=== PATIENT | female | born 1960 | race Caucasian/White ===

== ENCOUNTER 2018-02-22 17:49 | Inpatient (IN) | payer OTHER ==
[~2018-02-22] VITALS: Ht 162.6 cm; Wt 60.4 kg
--- OUTSIDE RECORDS SUMMARY | 2018-02-22 17:50 | XMS REPORT | Clinical Summary ---
Author Author [facility] [place] [facility] Organization [facility] Address Unknown Phone Unavailable Care Team Providers Care Deicer Element Winder Machine Name Role Phone Jake Alves PCP Allergies No Known Allergies Medications End Date Status Medication Sig Dispensed Refills Start Date Active traMADol (ULTRAM) 50 mg TK 1 T PO QD 0 tablet PRN 8 Active levothyroxine (SYNTHROID, TK 1 T PO QD 1 LEVOXYL) 112 mcg tablet 8 Active dextroamphetamine-ampheta TK 1 T PO QD 0 mine (ADDERALL) 20 mg UTD 8 tablet Active Problems Not on file Encounters Care Team Description Date Type Specialty Noel Ochoa MA Screening for osteoporosis (Primary Dx) 05/02/2017 Orders Only Obstetrics and Gynecology Kristyn Rogers MA 04/24/2017 Telephone Obstetrics and Gynecology Olivia Giron MD Pap smear, low-risk (Primary Dx); Screening mammogram, encounter for 04/04/2017 Office Visit Obstetrics and Gynecology after 02/21/2017 Family History Medical History Relation Name Comments Heart disease Father Hypertension Father Lung cancer Father Relation Name Status Comments Father Social History Date Tobacco Use Types Packs/Day Years Used Current Every Day Smoker Cigarettes 4 Smokeless Tobacco: Never Used Alcohol Use Drinks/Week oz/Week Comments Yes social Sex Assigned at Date Recorded Not on file Industry Job Start Date Occupation Not on file Not on file Not on file Travel End Travel History Travel Start No recent travel history available. Last Filed Vital Signs Time Taken Vital Sign Reading 04/04/2017 3:12 PM CHANGE MANAGEMENT ADMINISTRATOR Blood Pressure 125/86 04/04/2017 3:12 PM CHANGE MANAGEMENT ADMINISTRATOR Pulse 99 04/04/2017 2:40 PM CHANGE MANAGEMENT ADMINISTRATOR Temperature 36.7 C (98.1 F) - Respiratory Rate - - Oxygen Saturation - - Inhaled Oxygen - Concentration 04/04/2017 2:40 PM CHANGE MANAGEMENT ADMINISTRATOR Weight 62.1 kg (136 lb 12.8 oz) - Height - - Body Mass Index - Plan of Treatment Health Maintenance Due Date Last Done Comments CERVICAL CANCER SCREENING 06/16/1983 BREAST CANCER SCREENING 2012 COLON CANCER SCREENING 2012 SHINGLES VACCINES (1 of 2012 2) INFLUENZA VACCINE 09/13/2017 Procedures Comments Procedure Name Priority Date/Time Associated Diagnosis PAP IG, RFX HPV ASCU Routine 04/04/2017 Pap smear, low-risk 2:43 PM CHANGE MANAGEMENT ADMINISTRATOR after 02/21/2017 Results * Pap IG, rfx HPV ASCU (04/04/2017 2:43 PM CHANGE MANAGEMENT ADMINISTRATOR) Diagnosis CommentComment: NEGATIVE FOR [facility] INTRAEPITHELIAL LESION AND MALIGNANCY. Specimen adequacy Comment [facility] Comment: Satisfactory for evaluation.Endocervical and/or squamous metaplastic cells (endocervical component) are present. Clinician provided ICD10 CommentComment: Z01.419 [facility] Performed by: Comment [facility] Comment: Willem Lobato, Golf Ball Molder (ASCP) Reviewed at: [facility] [address] [facility] [id number] Comment . [facility] Note: Comment [facility] Comment: The Pap smear is a screening test designed to aid in the detection of premalignant and malignant conditions of the uterine cervix.It is not a diagnostic procedure and should not be used as the sole means of detecting cervical cancer.Both false-positive and false-negative reports do occur. Test methodology Comment [facility] Comment: This liquid based ThinPrep(R) pap test was screened with the use of an image guided system. Reflex Comment [facility] Comment: The HPV DNA reflex criteria were not met with this specimen result therefore, no HPV testing was performed. Specimen Cervical Narrative Performed At Performed at: - [facility] [address] [facility], [place], [id number] E D Tech: Elizabeth Couch MD, Phone:[phone] Specimen Comment: No. of containers..01 ThinPrep Vial Performing Organization Address City/State/Zipcode Phone Number [facility] after 02/21/2017 Insurance Payer Benefit Subscriber ID Type Phone Address Plan / Group [facility] xxxxxxxxx HMO/PPO THCARE CHOICE/CHO ICE + Advance Directives Patient has advance care planning documents on file. For more information, rolando lin contact: Noble Fisher [address] [place] [address]
[2018-02-22] MEDS ORDERED: ASPIRIN 81 MG CHEW TAB ONE (18:09)
[2018-02-22 18:14] LABS: BASOPHILS % 0.5 % (0.0-1.0); EOSINOPHILS # (AUTO) 0.3 (0.0-0.4); HEMATOCRIT 43.6 % (34.2-44.1); HEMOGLOBIN 15.1 g/dL (12.0-16.0); LYMPHOCYTES # (AUTO) 3.4 (1.0-3.2); LYMPHOCYTES % 38.1 % (18.0-39.1); MEAN CORPUSCULAR HEMOGLOBIN 32.4 pg (28-32); MEAN CORPUSCULAR HGB CONC 34.6 g/dL (31-35); MEAN CORPUSCULAR VOLUME 93.6 fL (81-99); MONOCYTES # (AUTO) 0.7 (0.2-0.8); MONOCYTES % 7.5 % (4.4-11.3); NEUTROPHILS # (AUTO) 4.5 (2.1-6.9); NEUTROPHILS % 50.7 % (38.7-80.0); PLATELET COUNT 323 x10e3/uL (140-360); RED BLOOD COUNT 4.66 x10e6/uL (3.6-5.1); RED CELL DISTRIBUTION WIDTH 11.4 % (11.7-14.4)
[2018-02-22] MEDS ORDERED: MORPHINE SULFATE INJ 4 MG/ML INJ IV STA (18:21)
[2018-02-22] MEDS ORDERED: TICAGRELOR 90 MG TABLET PO STA (18:23)
[2018-02-22 18:24] LABS: INR 0.77; PROTHROMBIN TIME 11.5 seconds (11.9-14.5)
[2018-02-22] MEDS ORDERED: MORPHINE SULFATE INJ 4 MG/ML INJ ONE (18:24)
[2018-02-22] MEDS ORDERED: ONDANSETRON HCL INJ 2 MG/ML VIAL ONE (18:25)
[2018-02-22] MEDS ORDERED: ONDANSETRON HCL INJ 2 MG/ML VIAL IV STA (18:26)
[2018-02-22] MEDS ORDERED: HEPARIN SOD (PORCINE) 5,000 UNIT/ML VIAL IV ONE (18:30)
[2018-02-22] MEDS ORDERED: METOPROLOL TARTRATE INJ 1 MG/ML VIAL IV ONE (18:30)
[2018-02-22] MEDS ORDERED: VERAPAMIL HCL 2.5 MG/ML 2 ML VIAL ONE (18:30)
[2018-02-22] MEDS ORDERED: FENTANYL CITRATE/PF 100MCG/2 ML INJ ONE (18:30)
[2018-02-22] MEDS ORDERED: HEPARIN SOD (PORCINE) 1000 UNIT/ML 30ML ONE (18:30)
[2018-02-22] MEDS ORDERED: MIDAZOLAM HCL 2 MG/2 ML VIAL ONE ×2 (18:30→19:05)
[2018-02-22 18:31] LABS: ALANINE AMINOTRANSFERASE 111 IU/L (0-55); ALBUMIN 4.1 g/dL (3.5-5.0); ALBUMIN/GLOBULIN RATIO 1.5 (0.8-2.0); ALKALINE PHOSPHATASE 90 IU/L (40-150); ANION GAP 14.4 mmol/L (8-16); BLOOD UREA NITROGEN 14 mg/dL (7-26); BUN/CREATININE RATIO 15 (6-25); CALCIUM 9.8 mg/dL (8.4-10.2); CARBON DIOXIDE 26 mmol/L (22-29); CHLORIDE 101 mmol/L (98-107); CREATINE KINASE 66 IU/L (29-168); CREATININE, SERUM 0.96 mg/dL (0.57-1.11); EST GLOMERULAR FILTRATION RATE 60 ML/MIN (60-); GLUCOSE 90 mg/dL (74-118); POTASSIUM 3.4 mmol/L (3.5-5.1); SODIUM 138 mmol/L (136-145)
[2018-02-22] MEDS ORDERED: IOPAMIDOL 370 MG/ML 200 ML INFUS..BTL INJ ONE (18:31)
[2018-02-22] MEDS ORDERED: SODIUM CHLORIDE 0.9% 1000ML 1,000 ML ONE (18:31)
[2018-02-22] MEDS ORDERED: LIDOCAINE HCL 1% LOCAL INJ 20 ML VIAL ONE (18:31)
[2018-02-22] MEDS ORDERED: HEPARIN SOD/SOD CHLORIDE 2,000 ML ONE (18:31)
[2018-02-22] MEDS ORDERED: NITROGLYCERIN/D5W 200 MCG/ML 250 ML ONE (18:31)
[2018-02-22] MEDS ORDERED: TICAGRELOR 90 MG TABLET ONE (18:35)
[2018-02-22] MEDS ORDERED: HEPARIN SOD (PORCINE) 1000 UNIT/ML SDV ONE (18:36)
[2018-02-22] MEDS ORDERED: MORPHINE SULFATE 2 MG/ML SYR IV PRN (20:00)
[2018-02-22] MEDS: MORPHINE SULFATE INJ 4 MG/ML INJ IV PRN ×2 (20:15→22:15)
--- OUTSIDE RECORDS SUMMARY | 2018-02-22 20:44 | XMS REPORT | Clinical Summary ---
Author Author [employer] Organization [employer] Address Unknown Phone Unavailable Care Team Providers Care Ad Setter Name Role Phone Jake Alves PCP Allergies [...] Taken Vital Sign Reading 04/04/2017 3:12 PM COLORS CUSTODIAN Blood Pressure 125/86 04/04/2017 3:12 PM COLORS CUSTODIAN Pulse 99 04/04/2017 2:40 PM COLORS CUSTODIAN Temperature 36.7 C (98.1 F) - Respiratory Rate - - Oxygen Saturation - - Inhaled Oxygen - Concentration 04/04/2017 2:40 PM COLORS CUSTODIAN Weight 62.1 kg (136 lb 12.8 oz) [...] Routine 04/04/2017 Pap smear, low-risk 2:43 PM COLORS CUSTODIAN after 02/21/2017 Results * Pap IG, rfx HPV ASCU (04/04/2017 2:43 PM COLORS CUSTODIAN) Diagnosis CommentComment: NEGATIVE FOR [facility] INTRAEPITHELIAL LESION AND MALIGNANCY. Specimen adequacy Comment [facility] Comment: Satisfactory for evaluation.Endocervical and/or squamous metaplastic cells (endocervical component) are present. Clinician provided ICD10 CommentComment: Z01.419 [facility] Performed by: Comment [facility] Comment: Willem Lobato, Computer Tech (ASCP) Reviewed at: [facility] [address] [facility] [id number] Comment . [facility] Note: Comment [facility] Comment: [...] Narrative Performed At Performed at: - [facility] [address] [facility], [place], [id number] Manager User Experience: Elizabeth Couch MD, Phone:[phone] Specimen Comment: No. of containers..01 ThinPrep Vial Performing Organization Address City/State/Zipcode Phone Number [facility] after 02/21/2017 Insurance Payer Benefit Subscriber ID Type Phone Address Plan / Group [facility] xxxxxxxxx HMO/PPO THCARE CHOICE/CHO ICE + Advance Directives Patient has advance care planning documents on file. For more information, rolando lin contact: Noble Fisher [address] [place] [address]
[2018-02-22] MEDS ORDERED: ACETAMINOPHEN 325 MG TAB PO PRN (21:00)
[2018-02-22] MEDS ORDERED: ONDANSETRON HCL INJ 2 MG/ML VIAL IV PRN (21:00)
[2018-02-22] MEDS ORDERED: HYDRALAZINE HCL 20 MG/ML VIAL IV PRN (21:00)
[2018-02-22] MEDS ORDERED: ATORVASTATIN 20 MG TAB PO SCH (21:00)
[2018-02-22 21:05] VITALS: BP 144/101
--- NOTE | 2018-02-22 21:05 | Operative Report ---
DATE OF PROCEDURE: February 22, 2018 INDICATIONS FOR PROCEDURE: ST elevation OK. PREPROCEDURE ASSESSMENT: Patient's medical history, social history, prior experience with anesthesia were reviewed prior to the procedure. All the risks, benefits, alternatives of the procedure as well as moderate sedation were explained to the patient and informed consent was obtained as documented in the medical record. MEDICATIONS ADMINISTERED: Please see nursing notes for medications administered during the procedure. PROCEDURES PERFORMED 1. Coronary angiography. 2. Left heart catheterization. PROCEDURE DETAIL: Patient was brought to the cardiac catheterization laboratory in an emergent fashion. The right wrist was prepped and draped in a sterile manner. A 6-Scottish slender sheath was inserted into the right radial artery using modified Seldinger technique. Coronary angiography was performed using a 6-Scottish Folloyu left 3.5 guiding catheter to engage both the left and the right coronary arteries. Left heart catheterization was performed using an angled pigtail catheter. LV-gram was performed using the same angled pigtail catheter. All catheters were removed over a wire. Arteriotomy was closed using a TR band. Case ended without any complications. FINDINGS: Tortuous vessels, however, no obstructive coronary artery disease. LV-gram showed apical hypokinesis consistent with diagnosis of stress induced cardiomyopathy or takotsubo cardiomyopathy. COMPLICATIONS: None. ESTIMATED BLOOD LOSS: 20. GRAFTS AND IMPLANTS: None. FINAL RECOMMENDATIONS 1. Admitted to ICU for overnight observation. 2. TR band protocol. 3. Patient has takotsubo cardiomyopathy. Will place her on heart failure medications and patient will need to follow up in clinic to documented recovery. Thank you for this consult. Will continue to follow. Job#: [id number]
[2018-02-22 21:10] VITALS: BP 146/52
[2018-02-22 22:00] VITALS: BP 113/83
[2018-02-22] MEDS: METOPROLOL TARTRATE 50 MG TAB PO SCH (22:03)
[2018-02-23] VITALS (17 sets, daily range): BP systolic 108–132; BP diastolic 71–95
[2018-02-23] MEDS: MORPHINE SULFATE INJ 4 MG/ML INJ IV PRN (04:21)
[2018-02-23 04:49] LABS: BASOPHILS % 0.4 % (0.0-1.0); EOSINOPHILS # (AUTO) 0.3 (0.0-0.4); EOSINOPHILS % 2.8 % (0.0-6.0); HEMATOCRIT 38.1 % (34.2-44.1); HEMOGLOBIN 13.2 g/dL (12.0-16.0); LYMPHOCYTES % 30.2 % (18.0-39.1); MEAN CORPUSCULAR HEMOGLOBIN 32.8 pg (28-32); MEAN CORPUSCULAR HGB CONC 34.6 g/dL (31-35); MEAN CORPUSCULAR VOLUME 94.8 fL (81-99); MONOCYTES # (AUTO) 0.6 (0.2-0.8); MONOCYTES % 6.3 % (4.4-11.3); NEUTROPHILS # (AUTO) 5.9 (2.1-6.9); NEUTROPHILS % 59.9 % (38.7-80.0); PLATELET COUNT 261 x10e3/uL (140-360); RED BLOOD COUNT 4.02 x10e6/uL (3.6-5.1); RED CELL DISTRIBUTION WIDTH 11.4 % (11.7-14.4)
[2018-02-23 05:07] LABS: ANION GAP 10.9 mmol/L (8-16); BLOOD UREA NITROGEN 13 mg/dL (7-26); BUN/CREATININE RATIO 15 (6-25); CALCIUM 8.8 mg/dL (8.4-10.2); CARBON DIOXIDE 27 mmol/L (22-29); CHLORIDE 107 mmol/L (98-107); CHOL/HDL RATIO 3.6 (3.0-3.6); CHOLESTEROL 180 MD/DL (0-199); CREATININE, SERUM 0.84 mg/dL (0.57-1.11); EST GLOMERULAR FILTRATION RATE > 60 ML/MIN (60-); GLUCOSE 92 mg/dL (74-118); HDL CHOLESTEROL 50 MG/DL (40-60); LDL CHOLESTEROL 99 MG/DL (60-130); POTASSIUM 3.9 mmol/L (3.5-5.1); SODIUM 141 mmol/L (136-145); TRIGLYCERIDES 153 MG/DL (0-149)
[2018-02-23] MEDS ORDERED: LISINOPRIL 10 MG TAB PO SCH (09:00)
[2018-02-23] MEDS: METOPROLOL TARTRATE 50 MG TAB PO SCH ×2 (10:07→18:30)
--- NOTE | 2018-02-23 10:39 | History and Physical ---
REASON FOR ADMISSION: Chest pain. HISTORY OF PRESENT ILLNESS: This is a 57-year-old woman with a history of hypothyroidism and ADD, who presents with complaints of chest pain. The patient reports she began having chest pain yesterday radiating down both arms, left greater than right. She described the sensation as heaviness that was 10/10 in severity, which lasted several hours until she presented to the ER. This pain was associated with diaphoresis, but not shortness of breath or nausea. She denied any edema, orthopnea or PND. On arrival to the ER, she was found to have a sinus tachycardia with inferior ST-elevation. The cardiac catheterization laboratory was activated. She was emergently taken to the cardiac catheterization lab for coronary angiography. She was found to have tortuous vessels. However, without obstructive coronary artery disease. LV-gram demonstrated apical hypokinesis consistent with stress-induced cardiomyopathy or Takotsubo cardiomyopathy. She was admitted to the ICU for further evaluation. She currently reports her chest pain has resolved. REVIEW OF SYSTEMS: Negative except as per HPI. PAST MEDICAL HISTORY: Hypothyroidism, ADD. PAST SURGICAL HISTORY: Tubal ligation. ALLERGIES: NO KNOWN DRUG ALLERGIES. MEDICATIONS: Please see EMR. SOCIAL HISTORY: She smokes 2 cigarettes a day for 25 years, except for the last 25 years. No alcohol or drugs. FAMILY HISTORY: Pertinent for father with myocardial infarction at the age of 60. PHYSICAL EXAMINATION VITALS: Temperature 97.4 degrees, pulse 62, respiratory rate 16, blood pressure 119/90, oxygen saturation 98% on room air. GENERAL: A well-developed, well-nourished woman. HEENT: Normocephalic and atraumatic. Pupils equal. No scleral icterus. NECK: Supple. No thyromegaly or cervical lymphadenopathy. No carotid bruits. LUNGS: Clear to auscultation bilaterally. No wheezes or crackles. CARDIOVASCULAR: Normal rate. Regular rhythm. No murmur. Normal S1 and S2. ABDOMEN: Soft and nontender. EXTREMITIES: No edema. NEURO: Nonfocal exam. LABS: WBC 9.81, hemoglobin 13.2, hematocrit 38.1, and platelets 261,000. Sodium 141, potassium 3.9, chloride 107, CO2 27, BUN 13, creatinine 0.84. Cholesterol 180, triglycerides 153, LDL 99, HDL 50. EKG is sinus tachycardia with inferior ST-elevation. IMPRESSION 1. Chest pain. 2. Takotsubo cardiomyopathy. 3. Hypothyroidism. RECOMMENDATIONS: The patient has been placed on lisinopril. She will need to be transitioned to metoprolol succinate upon discharge. Echocardiogram has been ordered and is pending. Continue atorvastatin. The patient will need to follow up in the office to document recovery of her LVEF. If the patient feels well, she may be able to be discharged later today. Job#: [id number] [facility]
[2018-02-23] MEDS ORDERED: METOPROLOL SUCC50 MG PO (17:55)
[2018-02-23] MEDS ORDERED: LISINOPRIL10 MG PO (17:56)
--- NOTE | 2018-02-23 23:45 | Discharge Summary ---
ADMISSION DIAGNOSIS: ST-elevation myocardial infarction. DISCHARGE DIAGNOSIS: Takotsubo cardiomyopathy. HISTORY OF PRESENT ILLNESS: This is a 57-year-old woman with history of hypothyroidism and ADD, who presented with complaints of chest pain. She was found to have impaired ST elevation on EKG and taken emergently to the cardiac catheterization laboratory where she was found to have no obstructive coronary artery disease. LV gram demonstrated apical hypokinesis and patient was admitted to the ICU for further monitoring. Patient was started on appropriate medical therapy for her Takotsubo cardiomyopathy. Patient did not demonstrate any arrhythmias or any signs and symptoms of heart failure, although troponin was mildly elevated consistent with her diagnosis of Takotsubo cardiomyopathy. Patient was started on appropriate medical therapy and was discharged home in stable condition. ACTIVITY: No heavy lifting. Do not soak procedure site in water. Patient was advised to avoid strenuous activity. MEDICATIONS: Please see medication reconciliation. Patient was instructed to stop Adderall, avoid NSAIDs as well as alcohol and caffeine. FOLLOWUP: With cardiology in 2 weeks. DIET: Heart-healthy 2 g sodium, 2-liter fluid restriction diet. BUDDY ACOSTA MD Job#: [id number] [facility]
== END 2018-02-23 18:38 | disposition home or self-care (01) | DRG 287 ==
LOC: ER 17:49 → ICU 20:41
PROVIDERS: ADMIT Internal Medicine; ATTEND Internal Medicine
PROC: 4A023N7 Measurement of Cardiac Sampling and Pressure, Left Heart, Percutaneous Approach (ICD-10-PCS; principal; 2018-02-22)
PROC: B2111ZZ Fluoroscopy of Multiple Coronary Arteries using Low Osmolar Contrast (ICD-10-PCS; 2018-02-22)
PROC: B2151ZZ Fluoroscopy of Left Heart using Low Osmolar Contrast (ICD-10-PCS; 2018-02-22)
DX: I51.81 Takotsubo syndrome (principal); E03.9 Hypothyroidism, unspecified; F98.8 Other specified behavioral and emotional disorders with onset usually occurring in childhood and adolescence; F17.210 Nicotine dependence, cigarettes, uncomplicated; Z82.49 Family history of ischemic heart disease and other diseases of the circulatory system
CPT/HCPCS: 36415; 80048; 80053; 80061; 82550; 82553; 84484; 84702; 85025; 85610; 93005; 93306; 93458; 96376; 99284; J1644; J2001; J2250; J2270; J2405; J7030; Q9967